=== PATIENT | male | born 1990 | race Caucasian/White ===

== ENCOUNTER 2016-06-26 08:29 | Emergency (ER) | payer SELFPAY ==
--- NOTE | 2016-06-26 10:14 | RAD ---
Indication: LEFT knee pain following injury 2 weeks ago. [place] and felt a pop. Interval improvement however reinjury last night. Comparison: There are no prior exams for comparison on the [facility] [place] [facility]. Technique: Noncontrast CT LEFT knee. Multiplanar reformation. Report: Small joint effusion without fat fluid level. Negative for popliteal cyst. Negative for fracture. Mild lateral subluxation of the patella relative to the femoral trochlea. Negative for joint space narrowing. Grossly normal contours of the tendons and ligaments about the knee. No CT abnormality of the skeletal musculature. Minimal anterior subcutaneous edema. IMPRESSION: Small joint effusion without fat fluid level. Negative for fracture. Mild lateral subluxation of the patella relative to the femoral trochlea which may be chronic. If there is persistent clinical concern for internal derangement a follow-up MRI would be suggested.
[2016-06-26] MEDS ORDERED: Ketorolac INJ* 60 MG/2 ML VIAL IM ONE (10:36)
[2016-06-26 11:22] VITALS: BP 121/67
--- NOTE | 2016-06-26 13:49 | ED ---
Kwesi Briceno Benjamin, scribed for Shaheed Bolden MD on 06/26/16 at 0850 . Lower Extremity - HPI Summary HPI Summary: 27yo male reports his left knee locking and popping after sitting in [place] style 2 weeks ago, which recurred yesterday. He reports that he is unable to straighten his knee. He reports severe pain when he is trying to straighten his knee. Left knee is swollen. At rest 5/10 pain, upon bending or applying pressure pain gets worse to 8/10. He reports he is unable to ambulate secondary to pain. He is using crutches to ambulate. Pt is a mild smoker and an occasional drinker. Hx of left knee avulsion Fx. Fhx of DDD and knee problems. - History of Current Complaint Chief Complaint: EDExtremityLower Stated Complaint: LEFT KNEE PAIN Time Seen by Provider: 06/26/16 08:41 Hx Obtained From: Patient Mechanism Of Injury: Unknown Onset of Pain: Days - 2 weeks ago Onset/Duration: Still Present - yesterday Severity Initially: Moderate Severity Currently: Moderate Pain Intensity: 6 Pain Scale Used: 0-10 Numeric Timing: Constant Location: Is Discrete @ - Left Knee Associated Signs And Symptoms: Positive: Swelling, Redness, Knee Pain Aggravating Factor(s): Movement - bending, Weight Bearing Alleviating Factor(s): Other - compression Able to Bear Weight: No PMH/Surg Hx/FS Hx/Imm Hx Musculoskeletal History: Reports: Hx of Fracture(s) - left knee avulsion fx Infectious Disease History: No Infectious Disease History: Denies: Traveled Outside the [place] in Last 30 Days - Family History Known Family History: Positive: Other - DDD and knee problems Negative: Cardiac Disease, Hypertension, Diabetes - Social History Occupation: Employed Full-time Lives: With Family Alcohol Use: Occasionally Hx Substance Use: No Smoking Status (MU): Current Some Day Smoker Review of Systems Constitutional: Negative Eyes: Negative ENT: Negative Cardiovascular: Negative Respiratory: Negative Gastrointestinal: Negative Genitourinary: Negative Positive: Arthralgia - Left knee pain and swelling Skin: Negative Neurological: Negative Psychological: Normal All Other Systems Reviewed And Are Negative: Yes Physical Exam Vital Signs On Initial Exam: Initial Vitals Temp Pulse Resp BP Pulse Ox 98.9 F 109 16 136/92 97 06/26/16 08:34 06/26/16 08:34 06/26/16 08:34 06/26/16 08:34 06/26/16 08:34 Diagnostics - Vital Signs Vital Signs Temp Pulse Resp BP Pulse Ox 06/26/16 08:34 98.9 F 109 16 136/92 97 - Laboratory Lab Statement: Any lab studies that have been ordered have been reviewed, and results considered in the medical decision making process. Lower Extremity Course/Dx - Course Assessment/Plan: 27yo male reports his left knee locking and popping after sitting in [place] style 2 weeks ago, which recurred yesterday. He reports that he is unable to straighten his knee. He reports severe pain when he is trying to straighten his knee. Left knee is swollen. At rest 5/10 pain, upon bending or applying pressure pain gets worse to 8/10. He reports he is unable to ambulate secondary to pain. He is using crutches to ambulate. Pt is a mild smoker and an occasional drinker. Hx of left knee avulsion Fx. Fhx of DDD and knee problems. No hx of trauma to think of a bony fx. I decided not to do X- Ray since I believe pt doesnt have a bone fx due to lack of trauma. Initially decided to order Shannon, however, MRIs are only done as an outpatient unless emergent in this institution. Therefore decided to do CT knee to r/u a buckle fx. CT IMPRESSION: Small joint effusion without fat fluid level. Negative for fracture. Mild lateral subluxation of the patella relative to the femoral trochlea which may be chronic. If there is persistent clinical concern for internal derangement a follow-up MRI would be suggested. At this point we placed a knee immobilizer. He will continue using crutches. Pt will f/u with ortho as soon as possible. Given toradol for pain. Pt is hemodynamically stable and A&Ox3. I discussed all the findings and test results with the patient. Patient was instructed to return to the emergency room immediately if any of the symptoms return or worsens. Plan of care was discussed with the patient and understands and agrees. All questions were answered at patient satisfaction. There were no further complaints or concerns. Lung exam before discharge: CTA B /L. Good air exchange. No wheezing or crackles heard. CVS: S1 and S2 present. No murmurs appreciated. Patient is alert and oriented x 3. Patient is hemodynamically stable. Patient will be discharged home with follow up systems coordinator in the next 2-3 days - Diagnoses Differential Diagnosis/HQI/PQRI: Positive: Arthritis, Bursitis, Dislocation, Fracture (Closed), Sprain, Strain, Tendonitis, Other - Buckle fracture Provider Diagnoses: Effusion, left knee, Left knee pain Discharge - Discharge Plan Condition: Stable Disposition: HOME Prescriptions: Ibuprofen TAB* [Motrin TAB* 600 MG] 600 mg PO Q8H PRN #20 tab PRN Reason: Pain Patient Education Materials: Swollen Knee Joint (ED), Knee Pain (ED) Forms: *Work Release Referrals: No Primary Care Phys,NOPCP [Primary Care Provider] - The documentation as recorded by the Kwsei luciano Benjamin accurately reflects the service I personally performed and the decisions made by Yuan stuart Walter, MD.
== END 2016-06-26 11:20 | disposition home or self-care (01) ==
LOC: ED 08:29
DX: M25.462 Effusion, left knee (principal); M25.562 Pain in left knee; Z72.0 Tobacco use
CPT/HCPCS: 96372; 99282